=== PATIENT | female | born 1955 | race American Indian/Alaskan Native ===

== ENCOUNTER 2019-09-14 02:26 | Emergency (ER) | payer SELFPAY ==
--- NOTE | 2019-09-14 02:40 | Emergency Department Report ---
ED CPR HPI - General Stated Complaint: CARDIAC ARREST Time Seen by Provider: 09/14/19 02:26 - History of Present Illness Initial Comments: Patient is a 63-year-old female that presents emergency room with cardiac arrest. Patient found down by the and called EMS. Last known well time was 20 minutes prior to ambulance being called. Report received from EMS. EMS states that they have been working the patient for approximately 40 minutes and the patient has been down for approximately 1 hour. Patient has received multiple rounds of epi and CPR continuously. Patient was intubated by EMS. ET tube placement verified with bilateral breath sounds and no sounds over the epigastrium. Complaint: found unresponsive -: minute(s) (20 minutes) Place: home Bystander CPR Performed: No AED Applied by Bystander/Tearoom Host/Hostess: No Shock Advised: No Initial Findings in the Field: unresponsive, no respirations, no pulse ROSC in the Field: No Associated Injuries: No Treatments Prior to Arrival: intubation, BMV, chest compressions, epinephrine mgs # ED Review of Systems ROS: Stated complaint: CARDIAC ARREST Other details as noted in HPI Comment: Unobtainable due to pts medical conditions ED Past Medical Hx - Past Medical History Previous Medical History?: Yes Hx Hypertension: Yes Hx Diabetes: Yes Hx Arthritis: Yes - Surgical History Past Surgical History?: No - Family History Family history: no significant - Social History Smoking Status: Unknown if ever smoked Substance Use Type: None ED Physical Exam - General Limitations: Altered Mental Status, Physical Limitation General appearance: other - Head Head exam: Present: atraumatic, normocephalic - Eye Eye exam: Present: other (Pupils fixed and dilated) - ENT ENT exam: Present: normal exam - Neck Neck exam: Present: normal inspection - Respiratory Respiratory exam: Present: other (ET tube in place with bilateral breath sounds.) - Cardiovascular Cardiovascular Exam: Present: other (No pulse noted. Asystole on the monitor) - GI/Abdominal GI/Abdominal exam: Present: soft - Rectal Rectal exam: Present: deferred - Extremities Exam Extremities exam: Present: normal inspection - Skin Skin exam: Present: warm, dry, intact, normal color. Absent: rash ED Course - Reevaluation(s) Reevaluation #1: Patient arrived via EMS. Report received from EMS. Patient is asystole on the monitor no pulse noted. CPR continued. 09/14/19 02:25 Reevaluation #2: Resuscitation efforts terminated. No signs of life noted. No pulse. Asystole on the monitor. Code ran in accordance with ACLS guidelines. See code note. Family meeting will be done once the family arrives. Family support will be given. 09/14/19 02:32 Reevaluation #3: Family has arrived. Family meeting done. Family support given. 09/14/19 02:42 ED Medical Decision Making - Medical Decision Making Patient is a 63-year-old female that presents emergency room for cardiac arrest. Patient brought in by EMS and EMS stated the patient was down for 20 minutes prior to them arriving and they were coding the patient for 40 minutes prior to arrival.. Patient's resuscitation efforts were terminated due to no signs of life. Patient's code ran in accordance with ACLS guidelines. See code note. Family meeting done. Family support given. - Differential Diagnosis Cardiac arrest. Critical Care Time: Yes Critical care time in (mins) excluding proc time.: 35 Critical care attestation.: If time is entered above; I have spent that time in minutes in the direct care of this critically ill patient, excluding procedure time. Critical Care Time: 35 minutes ED Disposition Clinical Impression: Cardiac arrest Disposition: DC-20 Is pt being admited?: No Does the pt Need Aspirin: No Condition: Undetermined Time of Disposition: 03:43
== END 2019-09-14 05:52 ==
LOC: ED 02:26
DX: I46.9 Cardiac arrest, cause unspecified (principal); I10 Essential (primary) hypertension; E11.9 Type 2 diabetes mellitus without complications; M19.90 Unspecified osteoarthritis, unspecified site
CPT/HCPCS: 92950